=== PATIENT | male | born 1970 | race Caucasian/White ===

== ENCOUNTER 2023-08-05 06:53 | Inpatient (IN) | payer MEDICAID ==
[2023-08-05] VITALS (13 sets, daily range): BP systolic 127–147; BP diastolic 76–98; PULSE 70–112; RESP 18–25; TEMP 97.8–97.9; O2SAT 93–99
[~2023-08-05] VITALS: Ht 160 cm; Wt 182.1 kg
[2023-08-05] MEDS ORDERED: METF-1211 PO (06:59)
[2023-08-05] MEDS ORDERED: LISI-892 PO (06:59)
[2023-08-05] MEDS: PredniSONE 20 MG TABLET PO ONE (07:24)
[2023-08-05] MEDS: LEVALBUTEROL 1.25 MG/0.5 ML NEB SOLUTION NEB ONE ×3 (07:25→13:31)
[2023-08-05] MEDS: IPRATROPIUM BROMIDE 0.5 MG/2.5 ML NEB SOLUTION NEB ONE ×2 (07:25→13:31)
[2023-08-05 07:51] LABS: BASOPHILS % (AUTO) 0.7 % (0.0-2.0); EOSINOPHILS % (AUTO) 2.3 % (1.0-6.0); HEMATOCRIT 45.3 % (41-53); HEMOGLOBIN 15.3 g/dL (13.5-17.5); LYMPHOCYTES # (AUTO) 1.7 K/uL (1.0-4.8); LYMPHOCYTES % (AUTO) 16.2 % (22.0-44.0); MEAN CORPUSCULAR HEMOGLOBIN 29.4 pg (26.0-34.0); MEAN CORPUSCULAR HGB CONC 33.8 G/dL (31.0-37.0); MEAN CORPUSCULAR VOLUME 87 fL (80-100); MONOCYTES # (AUTO) 1.2 K/uL (0.1-1.0); MONOCYTES % (AUTO) 11.4 % (2.0-9.0); NEUTROPHILS # (AUTO) 7.3 K/uL (1.8-7.7); NEUTROPHILS % (AUTO) 69.4 % (40.0-70.0); PLATELET COUNT (AUTO) 306 K/uL (150-450); RED BLOOD CELL COUNT(AUTO) 5.22 MIL/uL (4.50-5.90); RED CELL DISTRIBUTION WIDTH 14.2 % (11.5-14.5); WHITE BLOOD COUNT (AUTO) 10.6 K/uL (4.5-11.0)
[2023-08-05 08:00] LABS: ANION GAP 12 mmol/L (8-16); CALCIUM, TOTAL 8.7 mg/dL (8.8-10.5); CARBON DIOXIDE 26 mmol/L (22-29); CHLORIDE 100 mmol/L (98-107); CREATININE 0.84 mg/dL (0.60-1.30); GLOMERULAR FILTR. RATE CALC > 60 mL/min (>60); GLUCOSE,RANDOM 248 mg/dL (70-110); POTASSIUM 3.2 mmol/L (3.5-5.1); SODIUM SERUM 138 mmol/L (136-145); UREA NITROGEN, BLOOD 12 mg/dL (7-18)
[2023-08-05 08:06] LABS: ALANINE AMINOTRANSFERASE 28 U/L (12-78); ALBUMIN 3.3 g/dL (3.4-5.0); ALKALINE PHOSPHATASE 128 U/L (46-116); ASPARTATE AMINOTRANSFERASE 22 U/L (15-37); BILIRUBIN,TOTAL 0.7 mg/dL (0.1-1.0); TOTAL PROTEIN, SERUM 7.3 g/dL (6.4-8.2)
[2023-08-05 08:08] LABS: TROPONIN I-HIGH SENSITIVITY 12 ng/L (<76)
[2023-08-05] MEDS ORDERED: SODIUM CHLORIDE 0.9% 100 ML ONE ×2 (08:34→09:05)
[2023-08-05] MEDS ORDERED: IOHEXOL 350 MG/ML 100 ML VIAL ONE ×2 (08:34→09:05)
[2023-08-05] MEDS ORDERED: 0.9% SODIUM CHLORIDE 5 ML NEB SOLUTION NEB ONE (09:36)
[2023-08-05] MEDS: CefTRIAXone 1 GM/DEXTROSE 50 ML IV ONE (10:28)
[2023-08-05] MEDS: AZITHROMYCIN 500 MG/NS 250 ML IV ONE (10:28)
[2023-08-05 11:01] LABS: GLUCOMETER DEV NAME(LOC) ERT.5; GLUCOSE,POINT OF CARE 282 MG/DL (70-110)
[2023-08-05] MEDS ORDERED: BUDE10.22 IH (13:23)
[2023-08-05] MEDS ORDERED: SIMV-43 PO (13:23)
[2023-08-05] MEDS ORDERED: LISI40TA9 PO (13:23)
[2023-08-05] MEDS ORDERED: DULA1.5P SQ (13:23)
[2023-08-05] MEDS ORDERED: OMEP40CA21 PO (13:23)
[2023-08-05] MEDS ORDERED: DILT120T PO (13:23)
[2023-08-05] MEDS ORDERED: LINA5TAB PO (13:23)
[2023-08-05] MEDS ORDERED: MONT-40 PO (13:23)
[2023-08-05] MEDS ORDERED: BISACODYL 10 MG RECTAL RECTAL SUPPOSITORY PR PRN (15:15)
[2023-08-05] MEDS ORDERED: HYDROCODONE/ACETAMINOPHEN 5-325 MG TABLET PO PRN (15:15)
[2023-08-05] MEDS ORDERED: ONDANSETRON HCL 4 MG/2 ML VIAL IVP PRN (15:15)
[2023-08-05] MEDS ORDERED: ACETAMINOPHEN 325 MG TABLET PO PRN (15:15)
[2023-08-05] MEDS ORDERED: ZOLPIDEM TARTRATE 5 MG TABLET PO PRN (15:15)
[2023-08-05] MEDS ORDERED: MORPHINE SULFATE 2 MG/ML SYRINGE IVP PRN (15:15)
[2023-08-05] MEDS ORDERED: MAGNESIUM HYDROXIDE SUSPENSION 30 ML UDCUP PO PRN (15:15)
[2023-08-05] MEDS: BENZONATATE 100 MG CAPSULE PO SCH (16:02)
[2023-08-05] MEDS: HEPARIN SODIUM,PORCINE 5,000 UNITS/ML VIAL SQ SCH (16:02)
[2023-08-05] MEDS: IPRATROPIUM BROMIDE 0.5 MG/2.5 ML NEB SOLUTION NEB PRN (16:04)
[2023-08-05] MEDS: ALBUTEROL SULFATE 2.5 MG/0.5 ML NEB SOLUTION NEB PRN (16:06)
[2023-08-05] MEDS: MethylPREDNISolone SOD SUCC 125 MG/2 ML VIAL IVP SCH (18:08)
[2023-08-05] MEDS: MetFORMIN HCL 500 MG TABLET PO SCH (18:08)
[2023-08-05] MEDS: ALBUTEROL SULFATE 2.5 MG/0.5 ML NEB SOLUTION NEB SCH (19:14)
[2023-08-05] MEDS: IPRATROPIUM BROMIDE 0.5 MG/2.5 ML NEB SOLUTION NEB SCH (19:14)
[2023-08-05] MEDS: DOCUSATE SODIUM 100 MG CAPSULE PO SCH (21:00)
[2023-08-05] MEDS: GuaiFENesin SR 600 MG ER TABLET PO SCH (21:07)
[2023-08-05] MEDS: SIMVASTATIN 20 MG TABLET PO SCH (21:07)
[2023-08-05] MEDS ORDERED: SODIUM CHLORIDE 0.9% 500 ML IV ONE (21:40)
[2023-08-05] MEDS: POTASSIUM CHL 10 MEQ/WATER 50 ML IV PRN (22:03)
[2023-08-05] MEDS: POTASSIUM CHLORIDE 20 MEQ ER TABLET PO PRN (23:27)
[2023-08-06] VITALS (19 sets, daily range): BP systolic 123–153; BP diastolic 57–97; PULSE 91–111; RESP 18–29; TEMP 97.3–98.2; O2SAT 93–99
[2023-08-06 04:34] LABS: BASOPHILS % (AUTO) 0.3 % (0.0-2.0); EOSINOPHILS % (AUTO) 0.1 % (1.0-6.0); HEMATOCRIT 45.4 % (41-53); HEMOGLOBIN 15.5 g/dL (13.5-17.5); LYMPHOCYTES # (AUTO) 0.9 K/uL (1.0-4.8); LYMPHOCYTES % (AUTO) 12.5 % (22.0-44.0); MEAN CORPUSCULAR HEMOGLOBIN 30.1 pg (26.0-34.0); MEAN CORPUSCULAR HGB CONC 34.2 G/dL (31.0-37.0); MEAN CORPUSCULAR VOLUME 88 fL (80-100); MONOCYTES # (AUTO) 0.2 K/uL (0.1-1.0); MONOCYTES % (AUTO) 2.7 % (2.0-9.0); NEUTROPHILS # (AUTO) 5.9 K/uL (1.8-7.7); NEUTROPHILS % (AUTO) 84.4 % (40.0-70.0); PLATELET COUNT (AUTO) 341 K/uL (150-450); RED BLOOD CELL COUNT(AUTO) 5.15 MIL/uL (4.50-5.90); RED CELL DISTRIBUTION WIDTH 14.3 % (11.5-14.5)
[2023-08-06 04:42] LABS: CHLORIDE 99 mmol/L (98-107)
[2023-08-06 04:56] LABS: ANION GAP 14 mmol/L (8-16); CALCIUM, TOTAL 8.9 mg/dL (8.8-10.5); CARBON DIOXIDE 22 mmol/L (22-29); CREATININE 0.79 mg/dL (0.60-1.30); GLOMERULAR FILTR. RATE CALC > 60 mL/min (>60); SODIUM SERUM 135 mmol/L (136-145); UREA NITROGEN, BLOOD 18 mg/dL (7-18)
[2023-08-06 04:58] LABS: GLUCOSE,RANDOM 403 mg/dL (70-110)
[2023-08-06] MEDS ORDERED: DEXTROSE 50%-WATER 25 GM/50 ML SYRINGE IVP PRN ×3 (05:15→18:00)
[2023-08-06] MEDS: INSULIN LISPRO 100 UNITS/ML SQ PRN ×2 (06:14→18:01)
[2023-08-06 06:35] LABS: GLUCOMETER DEV NAME(LOC) 5N.2C; GLUCOSE,POINT OF CARE 365 MG/DL (70-110)
[2023-08-06] MEDS: LISINOPRIL 20 MG TABLET PO SCH (08:05)
[2023-08-06] MEDS: LinaGLIPtin 5 MG TABLET PO SCH (08:06)
[2023-08-06] MEDS: DILTIAZEM HCL 60 MG TABLET PO SCH (08:06)
[2023-08-06] MEDS: MONTELUKAST SODIUM 10 MG TABLET PO SCH (08:06)
[2023-08-06] MEDS: PANTOPRAZOLE SODIUM 40 MG DR TABLET PO SCH (08:06)
[2023-08-06] MEDS: CefTRIAXone 1 GM/DEXTROSE 50 ML IV SCH (08:07)
[2023-08-06] MEDS: AZITHROMYCIN 500 MG/NS 250 ML IV SCH (10:21)
[2023-08-06] MEDS ORDERED: INSULIN LISPRO 100 UNITS/ML SQ PRN (11:15)
[2023-08-06] MEDS: INSULIN LISPRO 100 UNITS/ML SQ ONE ×2 (11:27→21:51)
[2023-08-06 11:51] LABS: GLUCOMETER DEV NAME(LOC) 5S.1B; GLUCOSE,POINT OF CARE 442 MG/DL (70-110)
[2023-08-06 17:56] LABS: GLUCOMETER DEV NAME(LOC) 5N.2C; GLUCOSE,POINT OF CARE 440 MG/DL (70-110)
[2023-08-06] MEDS: INSULIN GLARGINE,HUM.REC.ANLOG 100 UNITS/ML SQ SCH (21:51)
[2023-08-07] VITALS (19 sets, daily range): BP systolic 122–149; BP diastolic 64–93; PULSE 71–105; RESP 18–25; TEMP 97.4–98; O2SAT 88–100
[2023-08-07 06:36] LABS: ANION GAP 12 mmol/L (8-16); CARBON DIOXIDE 23 mmol/L (22-29); CHLORIDE 99 mmol/L (98-107); CREATININE 0.81 mg/dL (0.60-1.30); GLOMERULAR FILTR. RATE CALC > 60 mL/min (>60); GLUCOSE,RANDOM 391 mg/dL (70-110); POTASSIUM 4.2 mmol/L (3.5-5.1); SODIUM SERUM 134 mmol/L (136-145); UREA NITROGEN, BLOOD 27 mg/dL (7-18)
[2023-08-07 06:41] LABS: BASOPHILS % (AUTO) 0.1 % (0.0-2.0); EOSINOPHILS % (AUTO) 0 % (1.0-6.0); HEMATOCRIT 44.8 % (41-53); HEMOGLOBIN 15.2 g/dL (13.5-17.5); LYMPHOCYTES # (AUTO) 0.8 K/uL (1.0-4.8); MEAN CORPUSCULAR HEMOGLOBIN 29.8 pg (26.0-34.0); MEAN CORPUSCULAR HGB CONC 33.9 G/dL (31.0-37.0); MEAN CORPUSCULAR VOLUME 88 fL (80-100); MONOCYTES # (AUTO) 0.4 K/uL (0.1-1.0); MONOCYTES % (AUTO) 2.6 % (2.0-9.0); NEUTROPHILS # (AUTO) 12.9 K/uL (1.8-7.7); PLATELET COUNT (AUTO) 356 K/uL (150-450); RED CELL DISTRIBUTION WIDTH 14.1 % (11.5-14.5); WHITE BLOOD COUNT (AUTO) 14.1 K/uL (4.5-11.0)
[2023-08-07 06:58] LABS: NEUTROPHILS % (AUTO) 91.3 % (40.0-70.0)
[2023-08-07 11:06] LABS: GLUCOMETER DEV NAME(LOC) 5N.1D; GLUCOSE,POINT OF CARE 380 MG/DL (70-110)
[2023-08-07 11:06] LABS: GLUCOMETER DEV NAME(LOC) 5S.1B; GLUCOSE,POINT OF CARE 524 MG/DL (70-110)
[2023-08-07] MEDS: MethylPREDNISolone SOD SUCC 125 MG/2 ML VIAL IVP ONE (11:22)
[2023-08-07 12:02] LABS: ABG BASE EXCESS -1.6 mmol/L (-2.0-3.0); ABG CARBOXYHEMOGLOBIN 1.2 % (0.0-1.5); ABG HCO3 23.6 mmol/L (22.0-26.0); ABG METHEMOGLOBIN 0.3 % (0.0-1.5); ABG OXYGEN CONTENT 21.8 mL/dL (15.0-23.0); ABG OXYGEN SATURATION 96.4 % (95.0-98.0); ABG PCO2 35 mmHg (35-45); ABG PH 7.426 (7.35-7.450); ABG TOTAL HEMOGLOBIN 16.3 G/dL (12.0-18.0); ALLEN TEST, BLOOD GAS Positive; PO2, ARTERIAL BG 78.8 mmHg (84.0-92.0); SITE, BLOOD GAS LFT BRACHIAL; SOURCE, BLOOD GAS ARTERIAL
[2023-08-07 12:03] LABS: O2 DEVICE,BLOOD GAS CANNULA (ROOM AIR)
[2023-08-07] MEDS: BENZONATATE 100 MG CAPSULE PO SCH (15:21)
[2023-08-07 17:20] LABS: GLUCOMETER DEV NAME(LOC) 5N.2C; GLUCOSE,POINT OF CARE 455 MG/DL (70-110)
[2023-08-07] MEDS: MethylPREDNISolone SOD SUCC 125 MG/2 ML VIAL IVP SCH (17:50)
[2023-08-07] MEDS ORDERED: MethylPREDNISolone SOD SUCC 125 MG/2 ML VIAL IVP SCH (18:00)
[2023-08-07] MEDS: BUDESONIDE 0.5 MG/2 ML NEB SOLUTION NEB SCH (20:01)
[2023-08-07] MEDS: INSULIN GLARGINE,HUM.REC.ANLOG 100 UNITS/ML SQ SCH (22:00)
[2023-08-07 22:01] LABS: GLUCOMETER DEV NAME(LOC) 5S.2C; GLUCOSE,POINT OF CARE 467 MG/DL (70-110)
[2023-08-08] VITALS (19 sets, daily range): BP systolic 128–155; BP diastolic 72–89; PULSE 84–99; RESP 18–27; TEMP 97.3–97.9; O2SAT 94–99
[2023-08-08 01:05] LABS: GLUCOMETER DEV NAME(LOC) 5S.1B; GLUCOSE,POINT OF CARE 446 MG/DL (70-110)
[2023-08-08 06:28] LABS: WHITE BLOOD COUNT (AUTO) 12.2 K/uL (4.5-11.0)
[2023-08-08 06:29] LABS: EOSINOPHILS % (AUTO) 0 % (1.0-6.0); HEMATOCRIT 44.4 % (41-53); HEMOGLOBIN 14.7 g/dL (13.5-17.5); LYMPHOCYTES # (AUTO) 0.7 K/uL (1.0-4.8); LYMPHOCYTES % (AUTO) 5.6 % (22.0-44.0); MEAN CORPUSCULAR HEMOGLOBIN 29.4 pg (26.0-34.0); MEAN CORPUSCULAR HGB CONC 33.1 G/dL (31.0-37.0); MEAN CORPUSCULAR VOLUME 89 fL (80-100); MONOCYTES # (AUTO) 0.8 K/uL (0.1-1.0); MONOCYTES % (AUTO) 6.1 % (2.0-9.0); NEUTROPHILS # (AUTO) 10.8 K/uL (1.8-7.7); PLATELET COUNT (AUTO) 342 K/uL (150-450); RED CELL DISTRIBUTION WIDTH 14.2 % (11.5-14.5)
[2023-08-08 06:41] LABS: ANION GAP 12 mmol/L (8-16); CALCIUM, TOTAL 8.8 mg/dL (8.8-10.5); CARBON DIOXIDE 24 mmol/L (22-29); CHLORIDE 100 mmol/L (98-107); CREATININE 0.82 mg/dL (0.60-1.30); GLOMERULAR FILTR. RATE CALC > 60 mL/min (>60); POTASSIUM 4.1 mmol/L (3.5-5.1); SODIUM SERUM 136 mmol/L (136-145); UREA NITROGEN, BLOOD 30 mg/dL (7-18)
[2023-08-08 06:42] LABS: NEUTROPHILS % (AUTO) 88.3 % (40.0-70.0)
[2023-08-08 06:52] LABS: GLUCOSE,RANDOM 455 mg/dL (70-110)
[2023-08-08 07:20] LABS: RBC MORPHOLOGY COMMENT NORMAL RBC MORPH
[2023-08-08] MEDS: INSULIN LISPRO 100 UNITS/ML SQ ONE ×2 (10:17→12:47)
[2023-08-08 10:40] LABS: GLUCOMETER DEV NAME(LOC) 5S.1B; GLUCOSE,POINT OF CARE 403 MG/DL (70-110)
[2023-08-08 10:45] LABS: GLUCOMETER DEV NAME(LOC) 5N.1D; GLUCOSE,POINT OF CARE 400 MG/DL (70-110)
[2023-08-08] MEDS: INSULIN GLARGINE,HUM.REC.ANLOG 100 UNITS/ML SQ SCH (21:11)
[2023-08-08 22:21] LABS: GLUCOMETER DEV NAME(LOC) 5N.2C; GLUCOSE,POINT OF CARE 331 MG/DL (70-110)
[2023-08-08 22:21] LABS: GLUCOMETER DEV NAME(LOC) 5N.2C; GLUCOSE,POINT OF CARE 412 MG/DL (70-110)
[2023-08-09] VITALS (10 sets, daily range): BP systolic 139–159; BP diastolic 84–95; PULSE 74–108; RESP 19–26; TEMP 96.8–97.7; O2SAT 95–98
[2023-08-09 02:01] LABS: GLUCOMETER DEV NAME(LOC) 5S.1B; GLUCOSE,POINT OF CARE 293 MG/DL (70-110)
[2023-08-09 06:36] LABS: GLUCOMETER DEV NAME(LOC) 5S.1B; GLUCOSE,POINT OF CARE 408 MG/DL (70-110)
[2023-08-09] MEDS: AZITHROMYCIN 500 MG TABLET PO SCH (08:51)
[2023-08-09] MEDS ORDERED: PRED-554 PO (10:47)
[2023-08-09] MEDS ORDERED: BUDE10.22 IH (10:47)
[2023-08-09] MEDS ORDERED: IPRA4AER IH (10:47)
[2023-08-09] MEDS ORDERED: BENZ100C68 PO (10:47)
[2023-08-09] MEDS ORDERED: LEVO750T68 PO (10:49)
[2023-08-09] MEDS: PredniSONE 20 MG TABLET PO SCH (11:28)
[2023-08-09 17:46] LABS: GLUCOMETER DEV NAME(LOC) 5S.1B; GLUCOSE,POINT OF CARE 393 MG/DL (70-110)
== END 2023-08-09 13:45 | disposition home or self-care (01) | DRG 137 ==
LOC: EMS 06:53 → 5S 14:06
PROVIDERS: ADMIT Internal Medicine; ATTEND Internal Medicine
PROC: 5A09357 Assistance with Respiratory Ventilation, Less than 24 Consecutive Hours, Continuous Positive Airway Pressure (ICD-10-PCS; principal; 2023-08-06)
PROC: 5A09357 Assistance with Respiratory Ventilation, Less than 24 Consecutive Hours, Continuous Positive Airway Pressure (ICD-10-PCS; 2023-08-07)
PROC: 5A09357 Assistance with Respiratory Ventilation, Less than 24 Consecutive Hours, Continuous Positive Airway Pressure (ICD-10-PCS; 2023-08-08)
PROC: 5A09357 Assistance with Respiratory Ventilation, Less than 24 Consecutive Hours, Continuous Positive Airway Pressure (ICD-10-PCS; 2023-08-09)
DX: J15.69 Pneumonia due to other Gram-negative bacteria (principal); J96.01 Acute respiratory failure with hypoxia; R65.11 Systemic inflammatory response syndrome (SIRS) of non-infectious origin with acute organ dysfunction; J45.901 Unspecified asthma with (acute) exacerbation; E66.2 Morbid (severe) obesity with alveolar hypoventilation; Z68.45 Body mass index [BMI] 70 or greater, adult; K21.9 Gastro-esophageal reflux disease without esophagitis; E11.65 Type 2 diabetes mellitus with hyperglycemia; I10 Essential (primary) hypertension; E78.5 Hyperlipidemia, unspecified; E87.6 Hypokalemia; Z79.84 Long term (current) use of oral hypoglycemic drugs; Z79.899 Other long term (current) drug therapy
CPT/HCPCS: 36600; 71045; 71275; 80048; 80053; 82805; 82962; 83880; 84132; 84484; 85025; 93005; 94640; 94660; 99285; J0456; J0696; J1644; J1815; J2919; J3480; J7040; J7050; Q9967; 36415-L1; 36415-TC; J7613; Z7610